=== PATIENT | male | born 1960 | race Hispanic/Latino ===

== ENCOUNTER 2017-05-19 17:05 | Emergency (ER) | payer MEDICAID ==
[2017-05-19 17:05] VITALS: BMI 41.3
[2017-05-19 17:58] LABS: BASO # 0.1 K/uL (0.0-0.2); BASO % 0.9 % (0.0-2.0); EOS # 0.2 K/uL (0.0-0.7); EOS % 1.9 % (0.0-4.0); HEMATOCRIT 44.3 % (35.0-51.0); LYMPH # 2.7 K/uL (1.0-4.3); LYMPH % 20.2 % (20.0-40.0); MEAN CELL VOLUME 82.8 fL (80.0-94.0); MEAN CORPUSCULAR HEMOGLOBIN 27.3 pg (27.0-31.0); MEAN PLATELET VOLUME 7.7 fL (7.2-11.7); MONO # 0.8 K/uL (0.0-0.8); MONO % 5.9 % (0.0-10.0); RED CELL DISTRIBUTION WIDTH 15.3 % (11.5-14.5); WHITE BLOOD COUNT 13.2 K/uL (4.8-10.8)
[2017-05-19] MEDS: Albuterol-Ipratrop 3 mg / 0.5 (3 ml) UD IH SCH ×3 (18:00→18:26)
[2017-05-19 18:08] LABS: CHLORIDE 104 mmol/L (98-107); SODIUM 142 mmol/L (132-148)
[2017-05-19 18:09] LABS: POTASSIUM 3.8 mmol/L (3.6-5.2)
--- NOTE | 2017-05-19 18:09 | RAD ---
HISTORY: SOB COMPARISON: Chest x-ray performed 01/05/16 TECHNIQUE: Chest, one view. FINDINGS: Examination limited by habitus. LUNGS: Mild bibasilar atelectasis. Please note that chest x-ray has limited sensitivity for the detection of pulmonary masses. PLEURA: No significant pleural effusion identified. No definite pneumothorax . CARDIOVASCULAR: Heart size appears within normal limits. Atherosclerotic calcifications of the aorta. OSSEOUS STRUCTURES: Right shoulder calcific tendinitis. Degenerative changes of the spine. VISUALIZED UPPER ABDOMEN: Mild elevation of the right hemidiaphragm. OTHER FINDINGS: None. IMPRESSION: Mild bibasilar atelectasis.
[2017-05-19 18:10] LABS: GFR AFRICAN-AMERICAN > 60
[2017-05-19 18:11] LABS: ALB/GLOB RATIO 1.2 (1.0-2.1); ALKALINE PHOSPHATASE 81 U/L (38-126); ALT/SGPT 47 U/L (21-72); AST/SGOT 23 U/L (17-59); BILIRUBIN,TOTAL 0.6 mg/dL (0.2-1.3); BLOOD UREA NITROGEN 11 mg/dL (9-20); CALCIUM 8.7 mg/dl (8.6-10.4); CARBON DIOXIDE 22 mmol/L (22-30); GLUCOSE,RANDOM 96 mg/dL (75-110); TOTAL PROTEIN 7.1 g/dL (6.3-8.3)
[2017-05-19 18:12] LABS: MAGNESIUM 1.9 mg/dL (1.6-2.3)
[2017-05-19] MEDS ORDERED: Albuterol-Ipratrop 3 mg / 0.5 (3 ml) UD ONE (18:18)
[2017-05-19] MEDS ORDERED: Magnesium Sulfate 1 gm in D5W 1 GM/100 ML BAG IVPB ONE ×2 (19:35→19:57)
--- NOTE | 2017-05-19 20:21 | C.PDOC ---
Time Seen by Provider: 05/19/17 17:32 Chief Complaint (Nursing): Respiratory Distress History Per: Patient Onset/Duration Of Symptoms: Hrs Current Symptoms Are (Timing): Still Present Current Respiratory Medications: See Home Med List Severity: Severe Associated Symptoms: Productive Cough Reports Recently: Hospitalized Additional History Per: Prior Records Past Medical History Reviewed: Historical Data, Nursing Documentation, Vital Signs Vital Signs: Last Vital Signs Temp 98.6 F 05/19/17 17:18 Pulse 110 H 05/19/17 18:58 Resp 25 H 05/19/17 18:58 BP 157/87 H 05/19/17 18:58 Pulse Ox 95 05/19/17 18:58 - Medical History PMH: Anxiety, Asthma, Bipolar Disorder, CHF, COPD, Depression, Diabetes, Emphysema, HTN, Hypercholesterolemia, Personality Disorder, Schizophrenia, Sleep Apnea - [facility] Procedures ALCOHOL DETOXIFICATION (06/28/14) ASSISTANCE WITH RESPIRATORY VENTILATION, 24-96 HRS, CPAP (04/30/17) DETOXIFICATION SERVICES FOR SUBSTANCE ABUSE TREATMENT (03/14/16) EXERCISE TREATMENT OF MUSCULOSK WHOLE USING ASSIST EQUIPMENT (05/04/17) GROUP PSYCHOTHERAPY (06/18/16) HOME MANAGEMENT TREATMENT USING ASSIST EQUIPMENT (05/04/17) INDIVID PSYCHOTHERAP NEC (07/03/15) INDIVIDUAL PSYCHOTHERAPY, BEHAVIORAL (12/24/15) INDIVIDUAL PSYCHOTHERAPY, SUPPORTIVE (06/18/16) INTRODUCE OF OTH THERAP SUBST INTO RESP TRACT, VIA OPENING (05/04/17) MEDICATION MANAGEMENT (03/14/16) NEBULIZER THERAPY (11/09/14) OTHER GROUP THERAPY (07/03/15) PSYCHIAT DRUG THERAP NEC (01/02/15) Family History: States: Unknown Family Hx - Social History Hx Tobacco Use: Yes Hx Alcohol Use: Yes Hx Substance Use: No - Immunization History Hx Tetanus Toxoid Vaccination: Yes Hx Influenza Vaccination: Yes Hx Pneumococcal Vaccination: No Review Of Systems Except As Marked, All Systems Reviewed And Found Negative. Constitutional: Negative for: Weakness Cardiovascular: Negative for: Chest Pain Respiratory: Positive for: Shortness of Breath, Wheezing. Negative for: Hemoptysis Gastrointestinal: Negative for: Vomiting, Abdominal Pain Musculoskeletal: Negative for: Neck Pain Neurological: Negative for: Weakness, Numbness, Seizures, Altered Mental Status Physical Exam - Physical Exam Appears: In Acute Distress Skin: Normal Color, Warm, Dry Head: Atraumatic, Normacephalic Eye(s): bilateral: PERRL, EOMI Neck: Normal ROM, Supple Cardiovascular: Rhythm Regular Respiratory: No Accessory Muscle Use, Wheezing Gastrointestinal/Abdominal: Soft, No Tenderness Back: No CVA Tenderness Extremity: Normal ROM, No Calf Tenderness Neurological/Psych: Oriented x3, Normal Motor, Normal Sensation ED Course And Treatment - Laboratory Results Result Diagrams: 05/19/17 17:52 05/19/17 17:52 Lab Interpretation: No Acute Changes ECG: Interpreted By Me, Viewed By Me ECG Rhythm: Sinus Tachycardia, Nonspecific Changes Rate From EC O2 Sat by Pulse Oximetry: 95 Pulse Ox Interpretation: Normal - Radiology CXR: Viewed By Me, Read By Radiologist CXR Interpretation: Yes: No Acute Disease Progress Note: Pt improved, but still wheezing. I wanted to admit pt to the hospital or at least observe him further, but he is not willing to stay any longer. Reassessment Condition: Improved Against Medical Advice - AMA Patient Left Against Medical Advice: The patient declines admission to the hospital and wishes to leave the Emergency Department. This action is against my medical advice. This decision was made with informed refusal. The patient was told that admission to the hospital is necessary. Explanation of the reasons why were discussed. The risks of leaving were explained to the patient and include, but are not limited to, worsening of known or currently unknown conditions, permanent disability and from undiagnosed or untreated conditions. The patient has the capacity to make this informed decision and understands my explanation of the current medical problem and risks of leaving. The patient voluntarily accepts these risks and signed an AMA form documenting our conversation. The patient was given the opportunity to ask questions and reconsider. The patient was encouraged to return to the Emergency Department at any time for further care. Progress - Interventions Interventions:: Observation, Oxygen - Medications Administered Inhaled nebulized: Anticholinergic, Beta-2 agonist Intravenous: Corticosteroid - Data Reviewed Data Reviewed: Lab, Diagnostic imaging, EKG, Old records - Patient Status Patient status: Mostly improved - Critical Care Citical Care: Excluding Proc Time Critical Care Time: 45 minutes - Continuity of Care Discussed patient case with:: Patient, ED Nurse Disposition Counseled Patient/Family Regarding: Studies Performed, Diagnosis, Need For Followup, Rx Given, Smoking Cessation - Disposition Referrals: Tamiko Arora [Outside] Disposition: AGAINST MEDICAL ADVICE Disposition Time: 20:22 Condition: GUARDED Additional Instructions: Follow up with your doctor as soon as possible. Return to the ER if you change your mind or if you develop worsening of symptoms or have any other concerns. Prescriptions: Montelukast Sodium [Singulair] 10 mg PO DAILY #30 tablet predniSONE [predniSONE Tab] 2 tab PO DAILY #10 tab Instructions: COPD (Chronic Obstructive Pulmonary Disease) (ED), Against Medical Advice (ED) Forms: [employer] (Danish) - Clinical Impression Clinical Impression: COPD exacerbation, Left against medical advice
[2017-05-19 20:24] VITALS: BP 130/82; PULSE 117; RESP 20; TEMP 99.2
[2017-05-19 20:25] VITALS: O2SAT 95
--- NOTE | 2017-05-21 07:54 | CARD ---
APPROVED REPORT EKG Measurement Heart [id number] <Conclusion> Sinus tachycardia Otherwise normal ECG
== END 2017-05-19 20:32 | disposition left against medical advice (07) ==
LOC: C.ER 17:05
DX: J44.1 Chronic obstructive pulmonary disease with (acute) exacerbation (principal); Z72.0 Tobacco use
CPT/HCPCS: 71010; 80053; 83735; 83880; 84484; 85025; 94150; 94640; 96374; 99285; J2930

== ENCOUNTER 2018-01-05 09:07 | Inpatient (IN) | payer MEDICAID ==
[2018-01-05 09:12] VITALS: BMI 42.0
[2018-01-05] MEDS ORDERED: Sodium Chloride 0.9% 1,000 ML IV ONE (09:27)
[2018-01-05] MEDS: Albuterol-Ipratrop 3 mg / 0.5 (3 ml) UD IH SCH ×3 (09:40→10:10)
[2018-01-05] MEDS ORDERED: Albuterol-Ipratrop 3 mg / 0.5 (3 ml) UD ONE (09:40)
[2018-01-05] MEDS ORDERED: Sodium Chloride 0.9% 1,000 ML ONE (09:41)
--- NOTE | 2018-01-05 09:41 | C.PDOC ---
History Of Present Illness 57 y/o male with PMHx of COPD and Asthma presents to ED with complaints of left sided intermittent chest pain worsening for 2 days with associated coughing and wheezing. Patient states he has a scheduled stress test tomorrow with Dr. Amanda but pain has worsened which prompted visit to ED today. Patient reports using inhaler once today with minimal improvement and denies sob, nausea , vomiting, fever, chills or any other complaints at this time. PMD: Dr. Zurita Time Seen by Provider: 01/05/18 09:15 Chief Complaint (Nursing): Chest Pain History Per: Patient History/Exam Limitations: no limitations Onset/Duration Of Symptoms: Days Current Symptoms Are (Timing): Still Present Quality: "Pain" Past Medical History Reviewed: Historical Data, Nursing Documentation, Vital Signs Vital Signs: Last Vital Signs Temp 98.1 F 01/05/18 13:14 Pulse 116 H 01/05/18 13:14 Resp 20 01/05/18 13:14 BP 117/78 01/05/18 13:14 Pulse Ox 97 01/05/18 14:40 - Medical History PMH: Anxiety, Asthma, Bipolar Disorder, CHF, COPD, Depression, Diabetes, Emphysema, HTN, Personality Disorder, Schizophrenia, Sleep Apnea Surgical History: No Surg Hx - [facility] Procedures ALCOHOL DETOXIFICATION (06/28/14) ASSISTANCE WITH RESPIRATORY VENTILATION, 24-96 HRS, CPAP (04/30/17) DETOXIFICATION SERVICES FOR SUBSTANCE ABUSE TREATMENT (03/14/16) EXERCISE TREATMENT OF MUSCULOSK WHOLE USING ASSIST EQUIPMENT (05/04/17) GROUP PSYCHOTHERAPY (09/30/17) HOME MANAGEMENT TREATMENT USING ASSIST EQUIPMENT (05/04/17) INDIV PSYCHOTHERAPY FOR SUBSTANCE ABUSE, COGNITIV BEHAVIORAL (09/30/17) INDIVID PSYCHOTHERAP NEC (07/03/15) INDIVIDUAL PSYCHOTHERAPY, BEHAVIORAL (12/24/15) INDIVIDUAL PSYCHOTHERAPY, COGNITIVE-BEHAVIORAL (09/30/17) INDIVIDUAL PSYCHOTHERAPY, SUPPORTIVE (06/18/16) INTRODUCE OF OTH THERAP SUBST INTO RESP TRACT, VIA OPENING (05/04/17) INTRODUCTION OF SERUM/TOX/VACCINE INTO MUSCLE, PERC APPROACH (09/28/17) MEDICATION MANAGEMENT (03/14/16) NEBULIZER THERAPY (11/09/14) OTHER GROUP THERAPY (07/03/15) PSYCHIAT DRUG THERAP NEC (01/02/15) Family History: States: No Known Family Hx - Social History Hx Tobacco Use: Yes Hx Alcohol Use: Yes Hx Substance Use: No - Immunization History Hx Tetanus Toxoid Vaccination: Yes Hx Influenza Vaccination: Yes Hx Pneumococcal Vaccination: No Review Of Systems Constitutional: Negative for: Fever, Chills Cardiovascular: Positive for: Chest Pain Respiratory: Positive for: Cough, Wheezing. Negative for: Shortness of Breath Gastrointestinal: Negative for: Nausea, Vomiting Skin: Negative for: Rash Physical Exam - Physical Exam Appears: Non-toxic, No Acute Distress, Other (obese) Skin: Warm, Dry, No Rash Head: Atraumatic, Normacephalic Oral Mucosa: Moist Neck: Normal ROM, Supple Chest: Symmetrical Cardiovascular: Rhythm Regular Respiratory: No Rales, No Rhonchi, Wheezing (Expiratory) Gastrointestinal/Abdominal: Soft, No Tenderness, No Guarding, No Rebound Extremity: No Pedal Edema, Capillary Refill (<2 seconds) Neurological/Psych: Oriented x3, Normal Speech ED Course And Treatment - Laboratory Results Result Diagrams: 01/05/18 09:46 01/05/18 09:46 Lab Interpretation: Normal ECG: Interpreted By Md ECG Rhythm: Sinus Tachycardia ECG Interpretation: No Acute Changes Rate From EC O2 Sat by Pulse Oximetry: 97 (RA) Pulse Ox Interpretation: Normal - Radiology CXR: Interpreted by Md CXR Interpretation: Yes: No Acute Disease - CT Scan/US No standard instances Other Rad Studies (CT/US): Read By Radiologist, Radiology Report Reviewed CT/US Interpretation: Findings: Visualized portions of the inferior thyroid gland: 8 mm left lower pole hypodense nodule. The mediastinal and hilar vascular structures appear within normal limits. The heart appears within normal limits of size. Prominent mediastinal adenopathy measuring up to 15 mm in short axis (subcarinal). There is suboptimal opacification of the pulmonary arteries as well as streak artifact which limits evaluation. No large central pulmonary embolus identified. Thin linear filling defect identified within a right upper lobe branch (series 2, image 102/coronal image 96) possibly resultant appearance from streak artifact rather than thrombus. No focal consolidation. No pleural effusion. No pneumothorax. No suspicious pulmonary nodules measuring greater than 5 mm. Limited visualized portions of the upper abdomen appear grossly unremarkable. No acute osseous abnormality is detected. Impression: There is suboptimal opacification of the pulmonary arteries as well as streak artifact which limits evaluation. No large central pulmonary embolus identified. Thin linear filling defect identified within a right upper lobe branch possibly resultant appearance from streak artifact rather than thrombus. Prominent mediastinal adenopathy measuring up to 15 mm in short axis (subcarinal). 8 mm left lower pole hypodense nodule. Outpatient thyroid ultrasound suggested for further evaluation if indicated. Progress Note: ECG, CXR, Dimer, blood work, UA ordered. Neb treatment, Prednisone Adiministered Reassessment Condition: Improved - Physician Consult Information Physician Contacted: Gnee Carpenter Outcome Of Conversation: admit Disposition Discussed With DrUsman: Gene Carpenter Doctor Will See Patient In The: Hospital - Disposition Disposition: HOSPITALIZED Disposition Time: 13:10 Condition: STABLE - POA Present On Arrival: None - Clinical Impression Clinical Impression: Chest pain, COPD exacerbation, COPD with exacerbation, COPD (chronic obstructive pulmonary disease) - PA / PSYCHOLOGY CLINICIAN / Resident Statement MD/DO has reviewed & agrees with the documentation as recorded. - Scribe Statement The provider has reviewed the documentation as recorded by the Juan Carlos Calix All medical record entries made by the Lichaibpal were at my direction and personally dictated by me. I have reviewed the chart and agree that the record accurately reflects my personal performance of the history, physical exam, medical decision making, and the department course for this patient. I have also personally directed, reviewed, and agree with the discharge instructions and disposition. Decision To Admit - Pt Status Changed To: Hospital Disposition Of: Inpatient - Admit Certification Admit to Inpatient:: After my assessment, the patient will require hospitalization for at least two midnights. This is because of the severity of symptoms shown, intensity of services needed, and/or the medical risk in this patient being treated as an outpatient. - InPatient: Physician Admission Certification: I certify that this patient requires 2 or more midnights of care for the following reason:: copd exacerbation - . Bed Request Type: Regular Admitting Physician: Gene Carpenter Patient Diagnosis: Chest pain, COPD exacerbation, COPD with exacerbation, COPD (chronic obstructive pulmonary disease)
[2018-01-05 09:52] LABS: BASO # 0.1 K/uL (0.0-0.2); EOS # 0.2 K/uL (0.0-0.7); EOS % 2.1 % (0.0-4.0); HEMOGLOBIN 15.4 g/dL (12.0-18.0); LYMPH # 1.4 K/uL (1.0-4.3); LYMPH % 14.3 % (20.0-40.0); MEAN CELL VOLUME 82.5 fL (80.0-94.0); MEAN CORPUSCULAR HEMOGLOBIN 27.7 pg (27.0-31.0); MEAN CORPUSCULAR HGB CONC 33.6 g/dL (33.0-37.0); MEAN PLATELET VOLUME 7.8 fL (7.2-11.7); MONO # 0.9 K/uL (0.0-0.8); MONO % 9.1 % (0.0-10.0); NEUT % 73.5 % (50.0-75.0); RBC 5.57 Mil/uL (4.40-5.90); WHITE BLOOD COUNT 9.6 K/uL (4.8-10.8)
[2018-01-05 10:05] LABS: ALB/GLOB RATIO 1.3 (1.0-2.1); ALBUMIN 4.5 g/dL (3.5-5.0); ALT/SGPT 34 U/L (21-72); AST/SGOT 31 U/L (17-59); BLOOD UREA NITROGEN 9 mg/dL (9-20); CALCIUM 9.2 mg/dl (8.6-10.4); GFR AFRICAN-AMERICAN > 60; GFR NON-AFRICAN AMERICAN > 60
[2018-01-05 10:15] LABS: CK-MB 2.77 ng/mL (0.0-3.38)
--- NOTE | 2018-01-05 10:38 | RAD ---
HISTORY: SOB COMPARISON: Chest radiograph dated 05/19/2017. TECHNIQUE: Chest PA and lateral FINDINGS: LUNGS: No active pulmonary disease. PLEURA: No significant pleural effusion identified. No pneumothorax apparent. CARDIOVASCULAR: Atherosclerotic aortic calcifications. Cardiomediastinal silhouette stably enlarged. OSSEOUS STRUCTURES: Unchanged. VISUALIZED UPPER ABDOMEN: Normal. OTHER FINDINGS: None. IMPRESSION: No active disease.
[2018-01-05 10:56] LABS: URINE BILIRUBIN NEGATIVE (NEGATIVE); URINE BLOOD NEGATIVE (NEGATIVE); URINE CLARITY Clear (Clear); URINE COLOR Straw (YELLOW); URINE GLUCOSE (UA) NORMAL (Normal); URINE LEUKOCYTE ESTERASE NEG Leu/uL (Negative); URINE PROTEIN NEGATIVE (NEGATIVE); URINE UROBILINOGEN NORMAL mg/dL (0.2-1.0)
[2018-01-05] MEDS ORDERED: Iodixanol 320 MG/ML 100 ML BOTTLE IV ONE (11:21)
--- NOTE | 2018-01-05 12:41 | CT ---
CTA chest PE protocol Indication: Dyspnea Technique: Contiguous axial images were obtained through the chest with intravenous contrast enhancement. Sagittal and coronal reconstructions were generated and reviewed. This CT exam was performed using 1 or more of the following dose reduction techniques: Automated exposure control, adjustment of the MAA and/or kV according to patient size, and/or use of iterative reconstruction technique. IV Contrast: 100 mL Visipaque 320 Radiation dose (DLP): 1234.81 MGy-cm. Comparison: Chest x-ray performed 01/05/18 Findings: Visualized portions of the inferior thyroid gland: 8 mm left lower pole hypodense nodule. The mediastinal and hilar vascular structures appear within normal limits. The heart appears within normal limits of size. Prominent mediastinal adenopathy measuring up to 15 mm in short axis (subcarinal). There is suboptimal opacification of the pulmonary arteries as well as streak artifact which limits evaluation. No large central pulmonary embolus identified. Thin linear filling defect identified within a right upper lobe branch (series 2, image 102/coronal image 96) possibly resultant appearance from streak artifact rather than thrombus. No focal consolidation. No pleural effusion. No pneumothorax. No suspicious pulmonary nodules measuring greater than 5 mm. Limited visualized portions of the upper abdomen appear grossly unremarkable. No acute osseous abnormality is detected. Impression: There is suboptimal opacification of the pulmonary arteries as well as streak artifact which limits evaluation. No large central pulmonary embolus identified. Thin linear filling defect identified within a right upper lobe branch possibly resultant appearance from streak artifact rather than thrombus. Prominent mediastinal adenopathy measuring up to 15 mm in short axis (subcarinal). 8 mm left lower pole hypodense nodule. Outpatient thyroid ultrasound suggested for further evaluation if indicated. Findings discussed with ASIA Butts on 01/05/18 at 12:37 p.m.
[2018-01-05] MEDS: Enoxaparin 40 mg Syringe SC SCH (17:24)
--- NOTE | 2018-01-05 17:53 | CP.PCM.HP ---
Past Patient History - Infectious Disease Hx of Infectious Diseases: None - Past Medical History & Family History Past Medical History?: Yes - Past Social History Smoking Status: Never Smoked - CARDIAC Hx Cardiac Disorders: Yes Hx Hypertension: Yes - PULMONARY Hx Asthma: Yes Hx Chronic Obstructive Pulmonary Disease (COPD): Yes Hx Emphysema: Yes Hx Sleep Apnea: Yes - NEUROLOGICAL Hx Neurological Disorder: No Hx Seizures: No - HEENT Hx HEENT Problems: No - RENAL Hx Chronic Kidney Disease: No - ENDOCRINE/METABOLIC Hx Endocrine Disorders: Yes Hx Diabetes Mellitus Type 1: No (PT DENIES) Hx Diabetes Mellitus Type 2: Yes Other/Comment: REPORTS "I'M BORDERLINE DIABETIC - HEMATOLOGICAL/ONCOLOGICAL Hx Blood Disorders: No Hx Human Immunodeficiency Virus (HIV): No - INTEGUMENTARY Hx Dermatological Problems: No - MUSCULOSKELETAL/RHEUMATOLOGICAL Hx Musculoskeletal Disorders: Yes Hx Falls: Yes - GASTROINTESTINAL Hx Gastrointestinal Disorders: No - GENITOURINARY/GYNECOLOGICAL Hx Genitourinary Disorders: No Hx Sexually Transmitted Disorders: No - PSYCHIATRIC Hx Psychophysiologic Disorder: Yes Hx Anxiety: Yes Hx Bipolar Disorder: Yes Hx Depression: Yes Hx Schizophrenia: Yes Hx Substance Use: No - SURGICAL HISTORY Hx Surgeries: No - ANESTHESIA Hx Anesthesia: No Hx Anesthesia Reactions: No Hx Malignant Hyperthermia: No Has any member of the family had a problem w/ anesthesia?: No Meds Allergies/Adverse Reactions: Allergies Allergy/AdvReac Type Severity Reaction Status Date / Time [place] And Derivatives Allergy ANGIOEDEMA Verified 01/05/18 09:11 Results - Vital Signs Recent Vital Signs: Last Vital Signs Temp 97.5 F L 01/05/18 16:27 Pulse 120 H 01/05/18 16:27 Resp 20 01/05/18 16:27 BP 147/86 01/05/18 16:27 Pulse Ox 96 01/05/18 16:27 - Labs Result Diagrams: 01/05/18 09:46 01/05/18 09:46 Labs: Laboratory Results - last 24 hr 01/05/18 01/05/18 01/05/18 09:46 09:46 09:46 WBC 9.6 RBC 5.57 Hgb 15.4 Hct 45.9 MCV 82.5 MCH 27.7 MCHC 33.6 RDW 16.0 H Plt Count 308 MPV 7.8 Neut % (Auto) 73.5 Lymph % (Auto) 14.3 L Bradley % (Auto) 9.1 Eos % (Auto) 2.1 Baso % (Auto) 1.0 Neut # (Auto) 7.0 Lymph # (Auto) 1.4 Bradley # (Auto) 0.9 H Eos # (Auto) 0.2 Baso # (Auto) 0.1 D-Dimer, Quantitative 328 H Sodium 139 Potassium 4.0 Chloride 99 Carbon Dioxide 25 Anion Gap 20 BUN 9 Creatinine 0.8 Est GFR ( Amer) > 60 Est GFR (Non-Af Amer) > 60 Random Glucose 95 Calcium 9.2 Total Bilirubin 0.5 AST 31 ALT 34 Alkaline Phosphatase 93 CK-MB (Mass) 2.77 Troponin I < 0.0120 Total Protein 8.0 Albumin 4.5 Globulin 3.5 Albumin/Globulin Ratio 1.3 Urine Color Urine Clarity Urine pH Ur Specific [place] Urine Protein Urine Glucose (UA) Urine Ketones Urine Blood Urine Nitrate Urine Bilirubin Urine Urobilinogen Ur Leukocyte Esterase Urine WBC (Auto) Urine RBC (Auto) Influenza Typ A,B (EIA) 01/05/18 01/05/18 10:40 12:59 WBC RBC Hgb Hct MCV MCH MCHC RDW Plt Count MPV Neut % (Auto) Lymph % (Auto) [place] % (Auto) Eos % (Auto) Baso % (Auto) Neut # (Auto) Lymph # (Auto) Bradley # (Auto) Eos # (Auto) Baso # (Auto) D-Dimer, Quantitative Sodium Potassium Chloride Carbon Dioxide Anion Gap BUN Creatinine Est GFR ( Amer) Est GFR (Non-Af Amer) Random Glucose Calcium Total Bilirubin AST ALT Alkaline Phosphatase CK-MB (Mass) Troponin I Total Protein Albumin Globulin Albumin/Globulin Ratio Urine Color Straw Urine Clarity Clear Urine pH 6.0 Ur Specific [place] 1.010 Urine Protein Negative Urine Glucose (UA) Normal Urine Ketones Negative Urine Blood Negative Urine Nitrate Negative Urine Bilirubin Negative Urine Urobilinogen Normal Ur Leukocyte Esterase Neg Urine WBC (Auto) < 1 Urine RBC (Auto) < 1 Influenza Typ A,B (EIA) Negative for flu a/b
[2018-01-05 20:23] LABS: CK-MB 3.28 ng/mL (0.0-3.38)
[2018-01-05] MEDS: Bacitracin Ointment 30 GM TUBE TOP PRN (21:08)
[2018-01-05] MEDS: (Novolog) Insulin Aspart, Recombinant 100 u/ml 10 ml vial SC SCH (23:14)
[2018-01-05] MEDS: Albuterol-Ipratrop 3 mg / 0.5 (3 ml) UD INH PRN (23:59)
[2018-01-06] MEDS: (Novolog) Insulin Aspart, Recombinant 100 u/ml 10 ml vial SC SCH ×4 (07:53→21:15)
[2018-01-06 08:12] LABS: BASO % 0.3 % (0.0-2.0); HEMOGLOBIN 14.7 g/dL (12.0-18.0); LYMPH # 0.8 K/uL (1.0-4.3); MEAN CELL VOLUME 82.3 fL (80.0-94.0); MEAN CORPUSCULAR HEMOGLOBIN 27.4 pg (27.0-31.0); MEAN CORPUSCULAR HGB CONC 33.3 g/dL (33.0-37.0); MEAN PLATELET VOLUME 8.1 fL (7.2-11.7); MONO # 0.9 K/uL (0.0-0.8); MONO % 5.2 % (0.0-10.0); NEUT # 14.8 K/uL (1.8-7.0); NEUT % 89.5 % (50.0-75.0); NRBC % 0.1 % (0.0-2.0); PLATELET COUNT 340 K/uL (130-400); RBC 5.37 Mil/uL (4.40-5.90)
[2018-01-06] MEDS ORDERED: Aminophylline 25 mg/ml Inj ONE (08:14)
[2018-01-06 08:15] LABS: WHITE BLOOD COUNT 16.5 K/uL (4.8-10.8)
[2018-01-06 08:41] LABS: ALB/GLOB RATIO 1.2 (1.0-2.1); ALBUMIN 4.2 g/dL (3.5-5.0); ALT/SGPT 28 U/L (21-72); AST/SGOT 32 U/L (17-59); BLOOD UREA NITROGEN 13 mg/dL (9-20); CALCIUM 9.2 mg/dl (8.6-10.4); GFR AFRICAN-AMERICAN > 60; GFR NON-AFRICAN AMERICAN > 60
[2018-01-06 08:52] LABS: CK-MB 2.67 ng/mL (0.0-3.38)
[2018-01-06 10:48] LABS: ANISOCYTOSIS SLIGHT; BANDS 3 % (0-2); LYMPHOCYTE 7 % (20-40); MONOCYTE 4 % (0-10); NEUTROPHIL 86 % (50-75); PLATELET ESTIMATE NORMAL (NORMAL); TOTAL CELLS COUNTED 100
[2018-01-06] MEDS: Enoxaparin 40 mg Syringe SC SCH (10:56)
--- NOTE | 2018-01-06 11:28 | CP.PCM.CON ---
History of Present Illness - History of Present Illness History of Present Illness: I was asked to evaluate patient by Dr Carpenter. Patient is a 57 year old male with PMH HTN, hypercholesterolemia COPD who presents with chest pain. He describes a central chest pressure with associated dyspnea. Symptoms were apparent with walking one block. The patient had progressive dsypnea and presented to [facility]. he states he has intemittent chest heaviness. Review of Systems - Constitutional Constitutional: absent: As Per HPI, Anorexia, Chills, Daytime Sleepiness, Excessive Sweating, Fatigue, Fever, Frequent Falls, Headache, Increased Appetite , Lethargy, Malaise, Night Sweats, Snoring, Sleep Apnea, Weight Gain, Weight Loss, Weakness, Other - EENT Eyes: absent: As Per HPI, Blind Spots, Blurred Vision, Change in Vision, Decreased Night Vision, Diplopia, Discharge, Dry Eye, Exophthalmos, Floaters, Irritation, Itchy Eyes, Loss of Peripheral Vision, Pain, Photophobia, Requires Corrective Lenses, Sees Flashes, Spots in Vision, Tunnel Vision, Other Visual Disturbances, Loss of Vision, Other Ears: absent: As Per HPI, Decreased Hearing, Ear Discharge, Ear Pain, Tinnitus, Abnormal Hearing, Disequilibrium, Dizziness, Other Nose/Mouth/Throat: absent: As Per HPI, Epistaxis, Nasal Congestion, Nasal Discharge, Nasal Obstruction, Nasal Trauma, Nose Pain, Post Nasal Drip, Sinus Pain, Sinus Pressure, Bleeding Gums, Change in Voice, Dental Pain, Dry Mouth, Dysphagia, Halitosis, Hoarsness, Lip Swelling, Mouth Lesions, Mouth Pain, Odynophagia, Sore Throat, Throat Swelling, Tongue Swelling, Facial Pain, Neck Pain, Neck Mass, Other - Cardiovascular Cardiovascular: Chest Pain at Rest, Chest Pain with Activity - Respiratory Respiratory: Dyspnea - Gastrointestinal Gastrointestinal: absent: As Per HPI, Abdominal Pain, Belching, Bloating, Change in Bowel Habits, Change in Stool Character, Coffee Ground Emesis, Constipation, Cramping, Diarrhea, Dyspepsia, Dysphagia, Early Satiety, Excessive Flatus, Fecal Incontinence, Heartburn, Hematemesis, Hematochezia, Loose Stools, Melena, Nausea, Odynophagia, Temesmus, Vomiting, Other - Genitourinary Genitourinary: absent: As Per HPI, Change in Urinary Stream, Difficulty Urinating, Dysuria, Flank Pain, Hematuria, Pyuria, Nocturia, Urinary Incontinence, Urinary Frequency, Urinary Hesitance, Urinary Urgency, Voiding Freq/Small Amts, Freq UTI, Hx Renal/Bladder Calculi, Hx /Renal Surgery, Bladder Distension, Other - Musculoskeletal Musculoskeletal: absent: As Per HPI, Abnormal Gait, Arthralgias, Atrophy, Back Pain, Deformity, Joint Swelling, Limited Range of Motion, Loss of Height, Muscle Cramps, Muscle Weakness, Myalgias, Neck Pain, Numbness, Radiating Pain into Limb, Stiffness, Tingling, Other - Integumentary Integumentary: absent: As Per HPI, Acne, Alopecia, Bleeding Lesions, Change in Hair, Change in Nails, Change in Pigmentation, Changing Lesions, Dry Skin, Erythema, Furuncle, Hirsutism, Lesions, New Lesions, Non-Healing Lesions, Photosensitivity, Pruritus, Rash, Skin Pain, Skin Ulcer, Sores, Striae, Swelling , Unusual Bruising, Wounds, Jaundice, Other - Neurological Neurological: absent: As Per HPI, Abnormal Gait, Abnormal Hearing, Abnormal Movements, Abnormal Speech, Behavioral Changes, Burning Sensations, Confusion, Convulsions, Disequilibrium, Dizziness, Numbness, Focal Weakness, Frequent Falls , Headaches, Lack of Coordination, Loss of Vision, Memory Loss, Paresthesias, Radicular Pain, Restless Legs, Sensory Deficit, Syncope, Tingling, Tremor, Vertigo, Weakness, Other Visual Disturbances, Other - Psychiatric Psychiatric: absent: As Per HPI, Abnormal Sleep Pattern, Anhedonia, Anxiety, Auditory Hallucinations, Behavioral Changes, Change in Appetite, Change in Libido, Confusion, Depression, Difficulty Concentrating, Hallucinations, Homicidal Ideation, Hopelessness, Irritability, Memory Loss, Mood Swings, Panic Attacks, Paranoia, Suicidal Ideation, Visual Hallucinations, Tactile Hallucinations, Other - Endocrine Endocrine: absent: As Per HPI, Change in Body Appearance, Change in Libido, Cold Intolorance, Deepening of Voice, Excessive Sweating, Fatigue, Flushing, Heat Intolorance, Increase in Ring/Shoe/Hat Size, Palpitations, Polydipsia, Polyphagia, Polyuria, Other - Hematologic/Lymphatic Hematologic: absent: As Per HPI, Easy Bleeding, Easy Bruising, Lymphadenopathy, Other Past Patient History - Infectious Disease Hx of Infectious Diseases: None - Past Medical History & Family History Past Medical History?: Yes - Past Social History Smoking Status: Never Smoked - CARDIAC Hx Cardiac Disorders: Yes Hx Hypertension: Yes - PULMONARY Hx Asthma: Yes Hx Chronic Obstructive Pulmonary Disease (COPD): Yes Hx Emphysema: Yes Hx Sleep Apnea: Yes - NEUROLOGICAL Hx Neurological Disorder: No Hx Seizures: No - HEENT Hx HEENT Problems: No - RENAL Hx Chronic Kidney Disease: No - ENDOCRINE/METABOLIC Hx Endocrine Disorders: Yes Hx Diabetes Mellitus Type 1: No (PT DENIES) Hx Diabetes Mellitus Type 2: Yes Other/Comment: REPORTS "I'M BORDERLINE DIABETIC - HEMATOLOGICAL/ONCOLOGICAL Hx Blood Disorders: No Hx Human Immunodeficiency Virus (HIV): No - INTEGUMENTARY Hx Dermatological Problems: No - MUSCULOSKELETAL/RHEUMATOLOGICAL Hx Musculoskeletal Disorders: Yes Hx Falls: Yes - GASTROINTESTINAL Hx Gastrointestinal Disorders: No - GENITOURINARY/GYNECOLOGICAL Hx Genitourinary Disorders: No Hx Sexually Transmitted Disorders: No - PSYCHIATRIC Hx Psychophysiologic Disorder: Yes Hx Anxiety: Yes Hx Bipolar Disorder: Yes Hx Depression: Yes Hx Schizophrenia: Yes Hx Substance Use: No - SURGICAL HISTORY Hx Surgeries: No - ANESTHESIA Hx Anesthesia: No Hx Anesthesia Reactions: No Hx Malignant Hyperthermia: No Has any member of the family had a problem w/ anesthesia?: No Meds Allergies/Adverse Reactions: Allergies Allergy/AdvReac Type Severity Reaction Status Date / Time Bettles And Derivatives Allergy ANGIOEDEMA Verified 01/05/18 09:11 - Medications Medications: Current Medications Albuterol/Ipratropium (Duoneb 3 Mg/0.5 Mg (3 Ml) Ud) 3 ml INH RQ6 PRN PRN Reason: Shortness of Breath Last Admin: 01/05/18 23:59 Dose: 3 ml Amlodipine Besylate (Norvasc) 10 mg PO DAILY [facility] Last Admin: 01/06/18 10:56 Dose: Not Given Aspirin (Aspirin Chewable) 81 mg PO DAILY [facility] Last Admin: 01/06/18 10:56 Dose: Not Given Bacitracin (Bacitracin) 1 gm TOP Q6H PRN PRN Reason: wound on right forearm Last Admin: 01/05/18 21:08 Dose: 1 applic Enoxaparin Sodium (Lovenox) 40 mg SC DAILY [facility] Last Admin: 01/06/18 10:56 Dose: Not Given Gabapentin (Neurontin) 100 mg PO TID PRN PRN Reason: Anxiety Last Admin: 03/14/18 21:07 Dose: 100 mg Insulin Aspart (Novolog) 0 unit SC ACHS [facility] PRN Reason: Protocol Last Admin: 01/06/18 07:53 Dose: Not Given Methylprednisolone (Solu-Medrol) 60 mg IV Q8 [facility] Last Admin: 01/06/18 07:41 Dose: Not Given Pramipexole Dihydrochloride (Mirapex) 1.5 mg PO Q12H [facility] Last Admin: 01/06/18 10:56 Dose: Not Given Physical Exam - Constitutional Appears: Non-toxic - Head Exam Head Exam: NORMAL INSPECTION - Eye Exam Eye Exam: Normal appearance - ENT Exam ENT Exam: Mucous Membranes Moist - Neck Exam Neck exam: Positive for: Full Rom - Respiratory Exam Respiratory Exam: NORMAL BREATHING PATTERN - Cardiovascular Exam Cardiovascular Exam: REGULAR RHYTHM - GI/Abdominal Exam GI & Abdominal Exam: Normal Bowel Sounds - Rectal Exam Rectal Exam: Deferred - Extremities Exam Extremities exam: Positive for: tenderness - Back Exam Back exam: NORMAL INSPECTION - Neurological Exam Neurological exam: Alert, Oriented x3 - Psychiatric Exam Psychiatric exam: Normal Affect - Skin Skin Exam: Normal Color Results - Vital Signs Recent Vital Signs: Last Vital Signs Temp 97.5 F L 01/06/18 07:00 Pulse 109 H 01/06/18 07:00 Resp 21 01/06/18 07:00 BP 156/103 H 01/06/18 07:00 Pulse Ox 93 L 01/06/18 07:00 - Labs Result Diagrams: 01/06/18 07:56 01/06/18 07:21 Labs: Laboratory Results - last 24 hr 01/05/18 01/05/18 01/05/18 10:40 12:59 17:54 WBC RBC Hgb Hct MCV MCH MCHC RDW Plt Count MPV Neut % (Auto) Lymph % (Auto) [place] % (Auto) Eos % (Auto) Baso % (Auto) Neut # (Auto) Lymph # (Auto) [place] # (Auto) Eos # (Auto) Baso # (Auto) Neutrophils % (Manual) Band Neutrophils % Lymphocytes % (Manual) Monocytes % (Manual) Platelet Estimate Anisocytosis (manual) Sodium Potassium Chloride Carbon Dioxide Anion Gap BUN Creatinine Est GFR ( Amer) Est GFR (Non-Af Amer) POC Glucose (mg/dL) 216 H Random Glucose Calcium Total Bilirubin AST ALT Alkaline Phosphatase Total Creatine Kinase CK-MB (Mass) Troponin I Total Protein Albumin Globulin Albumin/Globulin Ratio Urine Color Straw Urine Clarity Clear Urine pH 6.0 Ur Specific [place] 1.010 Urine Protein Negative Urine Glucose (UA) Normal Urine Ketones Negative Urine Blood Negative Urine Nitrate Negative Urine Bilirubin Negative Urine Urobilinogen Normal Ur Leukocyte Esterase Neg Urine WBC (Auto) < 1 Urine RBC (Auto) < 1 Influenza Typ A,B (EIA) Negative for flu a/b 01/05/18 01/05/18 01/06/18 19:41 21:24 06:22 WBC RBC Hgb Hct MCV MCH MCHC RDW Plt Count MPV Neut % (Auto) Lymph % (Auto) [place] % (Auto) Eos % (Auto) Baso % (Auto) Neut # (Auto) Lymph # (Auto) [place] # (Auto) Eos # (Auto) Baso # (Auto) Neutrophils % (Manual) Band Neutrophils % Lymphocytes % (Manual) Monocytes % (Manual) Platelet Estimate Anisocytosis (manual) Sodium Potassium Chloride Carbon Dioxide Anion Gap BUN Creatinine Est GFR ( Amer) Est GFR (Non-Af Amer) POC Glucose (mg/dL) 222 H 150 H Random Glucose Calcium Total Bilirubin AST ALT Alkaline Phosphatase Total Creatine Kinase 107 CK-MB (Mass) 3.28 Troponin I < 0.0120 Total Protein Albumin Globulin Albumin/Globulin Ratio Urine Color Urine Clarity Urine pH Ur Specific [place] Urine Protein Urine Glucose (UA) Urine Ketones Urine Blood Urine Nitrate Urine Bilirubin Urine Urobilinogen Ur Leukocyte Esterase Urine WBC (Auto) Urine RBC (Auto) Influenza Typ A,B (EIA) 01/06/18 01/06/18 07:21 07:56 WBC 16.5 H D RBC 5.37 Hgb 14.7 Hct 44.2 MCV 82.3 MCH 27.4 MCHC 33.3 RDW 16.0 H Plt Count 340 MPV 8.1 Neut % (Auto) 89.5 H Lymph % (Auto) 5.0 L [place] % (Auto) 5.2 Eos % (Auto) 0.0 Baso % (Auto) 0.3 Neut # (Auto) 14.8 H Lymph # (Auto) 0.8 L [place] # (Auto) 0.9 H Eos # (Auto) 0.0 Baso # (Auto) 0.0 Neutrophils % (Manual) 86 H Band Neutrophils % 3 H Lymphocytes % (Manual) 7 L Monocytes % (Manual) 4 Platelet Estimate Normal Anisocytosis (manual) Slight Sodium 136 Potassium 4.8 Chloride 101 Carbon Dioxide 23 Anion Gap 17 BUN 13 Creatinine 0.7 L Est GFR ( Amer) > 60 Est GFR (Non-Af Amer) > 60 POC Glucose (mg/dL) Random Glucose 167 H Calcium 9.2 Total Bilirubin 0.4 AST 32 ALT 28 Alkaline Phosphatase 78 Total Creatine Kinase 103 CK-MB (Mass) 2.67 Troponin I < 0.0120 Total Protein 7.9 Albumin 4.2 Globulin 3.6 Albumin/Globulin Ratio 1.2 Urine Color Urine Clarity Urine pH Ur Specific [place] Urine Protein Urine Glucose (UA) Urine Ketones Urine Blood Urine Nitrate Urine Bilirubin Urine Urobilinogen Ur Leukocyte Esterase Urine WBC (Auto) Urine RBC (Auto) Influenza Typ A,B (EIA) - EKG Data EKG Interpreted by: Myself EKG shows normal: Sinus rhythm Assessment & Plan (1) Chest pain Assessment and Plan: patient has signficant cardiovascular risk factors. will schedule for stress test today. Status: Acute (2) Hypertension Assessment and Plan: blood pressure control Status: Acute
--- NOTE | 2018-01-06 11:53 | CP.PCM.PN ---
Subjective - Date & Time of Evaluation Date of Evaluation: 01/06/18 Time of Evaluation: 10:00 - Subjective Subjective: stress test performed. await nuclear images Objective - Vital Signs/Intake and Output Vital Signs (last 24 hours): Temp Pulse Resp BP Pulse Ox 97.5 F L 109 H 21 156/103 H 93 L 01/06/18 07:00 01/06/18 07:00 01/06/18 07:00 01/06/18 07:00 01/06/18 07:00 - Medications Medications: Current Medications Albuterol/Ipratropium (Duoneb 3 Mg/0.5 Mg (3 Ml) Ud) 3 ml INH RQ6 PRN PRN Reason: Shortness of Breath Last Admin: 01/05/18 23:59 Dose: 3 ml Amlodipine Besylate (Norvasc) 10 mg PO DAILY [facility] Last Admin: 01/06/18 10:56 Dose: Not Given Aspirin (Aspirin Chewable) 81 mg PO DAILY [facility] Last Admin: 01/06/18 10:56 Dose: Not Given Bacitracin (Bacitracin) 1 gm TOP Q6H PRN PRN Reason: wound on right forearm Last Admin: 01/05/18 21:08 Dose: 1 applic Enoxaparin Sodium (Lovenox) 40 mg SC DAILY [facility] Last Admin: 01/06/18 10:56 Dose: Not Given Gabapentin (Neurontin) 100 mg PO TID PRN PRN Reason: Anxiety Last Admin: 01/05/18 21:07 Dose: 100 mg Insulin Aspart (Novolog) 0 unit SC ACHS [facility] PRN Reason: Protocol Last Admin: 01/06/18 07:53 Dose: Not Given Methylprednisolone (Solu-Medrol) 60 mg IV Q8 [facility] Last Admin: 01/06/18 07:41 Dose: Not Given Pramipexole Dihydrochloride (Mirapex) 1.5 mg PO Q12H [facility] Last Admin: 01/06/18 10:56 Dose: Not Given - Labs Labs: 01/06/18 07:56 01/06/18 07:21 Assessment and Plan (1) Chest pain Status: Acute (2) Hypertension Status: Acute
[2018-01-06] MEDS: Albuterol-Ipratrop 3 mg / 0.5 (3 ml) UD INH PRN ×2 (14:11→21:38)
--- NOTE | 2018-01-06 15:25 | CP.PCM.PN ---
Subjective - Date & Time of Evaluation Date of Evaluation: 01/06/18 Time of Evaluation: 15:25 Objective - Vital Signs/Intake and Output Vital Signs (last 24 hours): Temp Pulse Resp BP Pulse Ox 97.5 F L 109 H 21 156/103 H 93 L 01/06/18 07:00 01/06/18 07:00 01/06/18 07:00 01/06/18 07:00 01/06/18 07:00 Intake and Output: 01/06/18 01/06/18 06:59 18:59 Intake Total 300 Balance 300 - Medications Medications: Current Medications Albuterol/Ipratropium (Duoneb 3 Mg/0.5 Mg (3 Ml) Ud) 3 ml INH RQ6 PRN PRN Reason: Shortness of Breath Last Admin: 01/06/18 14:11 Dose: 3 ml Amlodipine Besylate (Norvasc) 10 mg PO DAILY [facility] Last Admin: 01/06/18 12:16 Dose: 10 mg Aspirin (Aspirin Chewable) 81 mg PO DAILY [facility] Last Admin: 01/06/18 10:56 Dose: Not Given Bacitracin (Bacitracin) 1 gm TOP Q6H PRN PRN Reason: wound on right forearm Last Admin: 01/05/18 21:08 Dose: 1 applic Enoxaparin Sodium (Lovenox) 40 mg SC DAILY [facility] Last Admin: 01/06/18 10:56 Dose: Not Given Gabapentin (Neurontin) 100 mg PO TID PRN PRN Reason: Anxiety Last Admin: 01/05/18 21:07 Dose: 100 mg Insulin Aspart (Novolog) 0 unit SC ACHS [facility] PRN Reason: Protocol Last Admin: 01/06/18 12:06 Dose: Not Given Methylprednisolone (Solu-Medrol) 60 mg IV Q8 [facility] Last Admin: 01/06/18 13:50 Dose: 60 mg Pramipexole Dihydrochloride (Mirapex) 1.5 mg PO Q12H [facility] Last Admin: 01/06/18 10:56 Dose: Not Given - Labs Labs: 01/06/18 07:56 01/06/18 07:21
--- NOTE | 2018-01-06 16:36 | CARD ---
APPROVED REPORT EKG Measurement Heart [id number] AL [id number] <Conclusion> Sinus tachycardia Otherwise normal ECG
[2018-01-07 07:46] LABS: BASO % 0.1 % (0.0-2.0); HEMOGLOBIN 14.6 g/dL (12.0-18.0); LYMPH # 0.8 K/uL (1.0-4.3); MEAN CELL VOLUME 83.9 fL (80.0-94.0); MEAN CORPUSCULAR HEMOGLOBIN 27.8 pg (27.0-31.0); MEAN CORPUSCULAR HGB CONC 33.2 g/dL (33.0-37.0); MEAN PLATELET VOLUME 8.1 fL (7.2-11.7); MONO # 0.9 K/uL (0.0-0.8); MONO % 5.4 % (0.0-10.0); NEUT # 14.5 K/uL (1.8-7.0); NEUT % 89.5 % (50.0-75.0); PLATELET COUNT 349 K/uL (130-400); RBC 5.26 Mil/uL (4.40-5.90); RED CELL DISTRIBUTION WIDTH 16.1 % (11.5-14.5); WHITE BLOOD COUNT 16.2 K/uL (4.8-10.8)
--- NOTE | 2018-01-07 07:49 | CARD ---
APPROVED REPORT Protocol: PHARMACOLOGICAL STRESS Test Type: LEXISCAN Test Indications: COPD Medications: LIST SCAN Medical History: COPD EXCERBATION Target HR: 163 bpm Resting ECG: normal Resting Heart Rate: 95 bpm Resting Blood Pressure: 144/90mmHg submaximum (85%): 139 bpm TEST SUMMARY [id number]/90.0. INFUSIONDOSE 100:300.00.01.078/.0. [id number]/88.0. PROCEDURE Pharmacologic stress testing was performed using 0.4mg per 5ml of regadenoson given intravenously over 7-10 seconds. Reversal agent aminophyline 125 mg, given intravenously for Dyspnea. POST EXERCISE Reason for Termination: Protocol Completed Target HR: No Max HR: 78 bpm 68% of Maximum Predicted HR: 163 bpm Exercise duration: 00:30 min:sec, 0 Stage Exercise capacity: 1.0METs Max Blood Pressure: 170/90mmHg Blood Pressure response to exercise: normal resting BP - appropriate response Heart Rate response to exercise: appropriate Chest Pain: No, none Angina index: 0 Arrhythmia: No, none ST Change: No, none Deviation: 0 mm INTERPRETATION Stress EKG Conclusion: AWAIT NUCLEAR IMAGES EXAM: Myocardial Perfusion REST/STRESS Imaging Protocol The imaging protocol used to acquire images was Rest Tc-99m/stress Tc-99m 1 day Rest Spect myocardial perfusion imaging was performed in supine position 45 minutes following the injection of 13.1 mCi of Tc-99 Myoview. Gated Stress Spect was performed 45 minutes after intravenous 32.6 mCi Tc-99 Myoview injection. The images were gated to evaluate regional wall motion and calculate ventricular ejection fraction.Images were reconstructed using backfilter projection method in short horizontal and verticle long axis. Spect slices were generated. RESTING DATA JWO209.97lnXP0.90L/min1/3 Pk. Filling Rate0.92EDV/sec LV Time to Pk. Filling Jojd470.76msec ESV49.00mlMyocardial Bdkq221.00gLV Time to Pk. Ejection Zjrf771.20msec Pk. Fill Rate3.29EDV/secAv. Heart Rate85.00bpm EF66.00%Pk. Emptying Rate3.06ESV/sec STRESS DATA AOD841.77yvHS3.40L/min ESV45.00mlMyocardial Ulka077.00g Pk. Fill Rate4.55EDV/sec EF65.00%Pk. Emptying Rate5.10ESV/sec 1/3 Pk. Filling Rate1.35EDV/secRegional WT score at stress:0.00 LV Time to Pk. Filling Rate:146.42msecRegional WM score at stress:0.00 LV Time to Pk. Ejection Rate:122.63msecSummed WT score at stress:4.00 Av. Heart Xblu487.00bpmSummed WM score at stress:3.00 LV Perf. Quant 17 Seg. SSS2.00 17 Seg. SRS3.00 17 Seg. SDS0.00 Stress Defect Extent (% LAD)0.00Rest Defect Extent (% LAD)0.00Rev. Defect Extent (% LAD)0.00 Stress Defect Extent (% LCX)0.00Rest Defect Extent (% LCX)0.00Rev. Defect Extent (% LCX)0.00 Stress Defect Extent (% RCA)14.40Rest Defect Extent (% RCA)25.60Rev. Defect Extent (% RCA)0.00 Stress Defect Extent (% TINO)2.80Rest Defect Extent (% TINO)6.10Rev. Defect Extent (% TINO)0.00 Other Information Quality:Excellent IMPRESSION Abnormal Myocardial Perfusion exercise stress study Global LV Function: Normal Stress Test Summary: Nondiagnostic LV Perfusion Summary: Abnormal Left Ventricle LV Size/Shape: The left ventricle is normal size. LV Function:Left ventricle systolic function is normal. The Ejection Fraction is 55-60%. Regional Wall Motion:No regional wall motion abnormalities noted. Metabolism/Perfusion Reversible/Irreversible: There is a large irreversible perfusion/metabolism defect in the Mid-inferior wall. There is a large irreversible perfusion/metabolism defect in the Apical inferior wall. Conclusion 1. Fixed myocardial perfusion defect of the inferior wall suggestive of previous myocardial infarction vs diaphragmatic attenuation. 2. Normal left ventricular function. 3. Cardiac Catheterization recommendation.
[2018-01-07 07:54] LABS: ALB/GLOB RATIO 1.2 (1.0-2.1); ALBUMIN 4.3 g/dL (3.5-5.0); ALT/SGPT 28 U/L (21-72); AST/SGOT 20 U/L (17-59); BLOOD UREA NITROGEN 15 mg/dL (9-20); CALCIUM 9.1 mg/dl (8.6-10.4); GFR AFRICAN-AMERICAN > 60; GFR NON-AFRICAN AMERICAN > 60
[2018-01-07] MEDS: (Novolog) Insulin Aspart, Recombinant 100 u/ml 10 ml vial SC SCH ×4 (07:59→23:05)
--- NOTE | 2018-01-07 08:26 | CP.PCM.PN ---
Subjective - Date & Time of Evaluation Date of Evaluation: 01/07/18 Time of Evaluation: 08:10 - Subjective Subjective: patient is still actively wheezing. no chest pain. Objective - Vital Signs/Intake and Output Vital Signs (last 24 hours): Temp Pulse Resp BP Pulse Ox 97.6 F 93 H 20 149/91 H 96 01/07/18 08:17 01/07/18 08:17 01/07/18 08:17 01/07/18 08:17 01/07/18 08:17 - Medications Medications: Current Medications Albuterol/Ipratropium (Duoneb 3 Mg/0.5 Mg (3 Ml) Ud) 3 ml INH RQ6 PRN PRN Reason: Shortness of Breath Last Admin: 01/06/18 21:38 Dose: 3 ml Amlodipine Besylate (Norvasc) 10 mg PO DAILY [facility] Last Admin: 01/06/18 12:16 Dose: 10 mg Aspirin (Aspirin Chewable) 81 mg PO DAILY [facility] Last Admin: 01/06/18 10:56 Dose: Not Given Bacitracin (Bacitracin) 1 gm TOP Q6H PRN PRN Reason: wound on right forearm Last Admin: 01/05/18 21:08 Dose: 1 applic Enoxaparin Sodium (Lovenox) 40 mg SC DAILY [facility] [place] Last Admin: 01/06/18 10:56 Dose: Not Given Gabapentin (Neurontin) 100 mg PO TID PRN PRN Reason: Anxiety Last Admin: 01/06/18 21:39 Dose: 100 mg Insulin Aspart (Novolog) 0 unit SC ACHS [facility] [place] PRN Reason: Protocol Last Admin: 01/07/18 07:59 Dose: Not Given Methylprednisolone (Solu-Medrol) 60 mg IV Q8 [facility] [place] Last Admin: 01/07/18 06:23 Dose: 60 mg Pramipexole Dihydrochloride (Mirapex) 1.5 mg PO Q12H [facility] Last Admin: 01/06/18 21:39 Dose: 1.5 mg - Labs Labs: 01/07/18 07:30 01/07/18 07:30 - Constitutional Appears: Non-toxic - Head Exam Head Exam: NORMAL INSPECTION - ENT Exam ENT Exam: Mucous Membranes Moist - Neck Exam Neck Exam: Full ROM - Respiratory Exam Respiratory Exam: Wheezes - Cardiovascular Exam Cardiovascular Exam: REGULAR RHYTHM - GI/Abdominal Exam GI & Abdominal Exam: Normal Bowel Sounds - Rectal Exam Rectal Exam: Deferred - Extremities Exam Extremities Exam: Pedal Edema - Back Exam Back Exam: NORMAL INSPECTION - Neurological Exam Neurological Exam: Alert - Psychiatric Exam Psychiatric exam: Normal Affect - Skin Skin Exam: Normal Color Assessment and Plan (1) Chest pain Assessment & Plan: I reviewed the stress test with the patient. Thre is myocardial perfusion defect of the inferior wall. The patient likely has signficant CAD. I will continue medical therapy. Schedule for outpatient cardiac cath. Status: Acute (2) Hypertension Assessment & Plan: blood pressure control Status: Acute
[2018-01-07] MEDS: Enoxaparin 40 mg Syringe SC SCH (09:17)
[2018-01-07 09:55] LABS: ANISOCYTOSIS SLIGHT; LYMPHOCYTE 5 % (20-40); MONOCYTE 3 % (0-10); NEUTROPHIL 92 % (50-75); PLATELET ESTIMATE NORMAL (NORMAL); TOTAL CELLS COUNTED 100
[2018-01-07] MEDS: Bacitracin Ointment 30 GM TUBE TOP PRN (11:06)
[2018-01-07] MEDS: Albuterol-Ipratrop 3 mg / 0.5 (3 ml) UD INH PRN (11:27)
--- NOTE | 2018-01-07 17:07 | CP.PCM.PN ---
Subjective - Date & Time of Evaluation Date of Evaluation: 01/07/18 Time of Evaluation: 17:06 - Subjective Subjective: Patient is seen and examined Continues to wheeze Reports dyspnea Afebrile Objective - Vital Signs/Intake and Output Vital Signs (last 24 hours): Temp Pulse Resp BP Pulse Ox 97.6 F 104 H 20 137/82 95 01/07/18 15:00 01/07/18 15:54 01/07/18 15:00 01/07/18 15:00 01/07/18 15:00 Intake and Output: 01/07/18 01/07/18 06:59 18:59 Intake Total 510 Balance 510 - Medications Medications: Current Medications Albuterol/Ipratropium (Duoneb 3 Mg/0.5 Mg (3 Ml) Ud) 3 ml INH RQ6 PRN PRN Reason: Shortness of Breath Last Admin: 01/07/18 11:27 Dose: 3 ml Amlodipine Besylate (Norvasc) 10 mg PO DAILY [facility] Last Admin: 01/07/18 09:16 Dose: 10 mg Aspirin (Aspirin Chewable) 81 mg PO DAILY [facility] Last Admin: 01/07/18 09:16 Dose: 81 mg Bacitracin (Bacitracin) 1 gm TOP Q6H PRN PRN Reason: wound on right forearm Last Admin: 01/07/18 11:06 Dose: 1 applic Enoxaparin Sodium (Lovenox) 40 mg SC DAILY [facility] Last Admin: 01/07/18 09:17 Dose: 40 mg Gabapentin (Neurontin) 100 mg PO TID PRN PRN Reason: Anxiety Last Admin: 01/06/18 21:39 Dose: 100 mg Insulin Aspart (Novolog) 0 unit SC ACHS [facility] PRN Reason: Protocol Last Admin: 01/07/18 11:33 Dose: Not Given Methylprednisolone (Solu-Medrol) 60 mg IV Q8 [facility] Last Admin: 01/07/18 13:09 Dose: 60 mg Pramipexole Dihydrochloride (Mirapex) 1.5 mg PO Q12H [facility] Last Admin: 01/07/18 09:16 Dose: 1.5 mg - Labs Labs: 01/07/18 07:30 01/07/18 07:30 - Head Exam Head Exam: NORMAL INSPECTION - Eye Exam Eye Exam: Normal appearance - ENT Exam ENT Exam: Mucous Membranes Moist - Respiratory Exam Respiratory Exam: Prolonged Expiratory Phase, Wheezes - Cardiovascular Exam Cardiovascular Exam: REGULAR RHYTHM, +S1, +S2 - GI/Abdominal Exam GI & Abdominal Exam: Soft, Normal Bowel Sounds - Neurological Exam Neurological Exam: Alert, Oriented x3 Assessment and Plan - Assessment and Plan (Free Text) Assessment: COPD Exacerbation Morbid Obesity CAD IONA HTN DM Continue Solumedrol 60 mg IV Q 8 hrs Bronchodilators ASA Hold BB due to active wheezing Statins Cardiology input appreciated Accucheck Insulin BP control DVT/GI Prophalaxis
[2018-01-08 07:16] LABS: BASO % 0.3 % (0.0-2.0); HEMOGLOBIN 14.2 g/dL (12.0-18.0); LYMPH % 6.8 % (20.0-40.0); MEAN CELL VOLUME 83.2 fL (80.0-94.0); MEAN CORPUSCULAR HEMOGLOBIN 27.6 pg (27.0-31.0); MEAN CORPUSCULAR HGB CONC 33.2 g/dL (33.0-37.0); MEAN PLATELET VOLUME 8.1 fL (7.2-11.7); MONO # 1.1 K/uL (0.0-0.8); MONO % 7.3 % (0.0-10.0); NEUT % 85.6 % (50.0-75.0); PLATELET COUNT 348 K/uL (130-400); RBC 5.14 Mil/uL (4.40-5.90); RED CELL DISTRIBUTION WIDTH 15.7 % (11.5-14.5); WHITE BLOOD COUNT 15.2 K/uL (4.8-10.8)
[2018-01-08 07:35] LABS: ALB/GLOB RATIO 1.2 (1.0-2.1); ALT/SGPT 31 U/L (21-72); AST/SGOT 20 U/L (17-59); BLOOD UREA NITROGEN 15 mg/dL (9-20); CALCIUM 8.8 mg/dl (8.6-10.4); GFR AFRICAN-AMERICAN > 60; GFR NON-AFRICAN AMERICAN > 60
[2018-01-08] MEDS: Albuterol-Ipratrop 3 mg / 0.5 (3 ml) UD INH PRN ×2 (07:52→20:08)
[2018-01-08] MEDS: (Novolog) Insulin Aspart, Recombinant 100 u/ml 10 ml vial SC SCH ×4 (08:13→21:23)
[2018-01-08 09:48] LABS: ANISOCYTOSIS SLIGHT; LYMPHOCYTE 8 % (20-40); MONOCYTE 7 % (0-10); NEUTROPHIL 85 % (50-75); PLATELET ESTIMATE NORMAL (NORMAL); TOTAL CELLS COUNTED 100
[2018-01-08] MEDS: Enoxaparin 40 mg Syringe SC SCH (09:56)
[2018-01-08 15:55] VITALS: RESP 20
[2018-01-09] MEDS: Albuterol-Ipratrop 3 mg / 0.5 (3 ml) UD INH PRN ×2 (07:40→13:13)
[2018-01-09] MEDS: (Novolog) Insulin Aspart, Recombinant 100 u/ml 10 ml vial SC SCH ×4 (08:38→21:36)
[2018-01-09] MEDS: Enoxaparin 40 mg Syringe SC SCH (09:38)
--- NOTE | 2018-01-09 12:52 | CP.PCM.PN ---
Subjective - Date & Time of Evaluation Date of Evaluation: 01/09/18 Time of Evaluation: 12:51 Objective - Vital Signs/Intake and Output Vital Signs (last 24 hours): Temp Pulse Resp BP Pulse Ox 97.6 F 68 20 145/97 H 95 01/09/18 00:01 01/09/18 01:00 01/09/18 00:01 01/09/18 00:01 01/09/18 00:01 - Medications Medications: Current Medications Albuterol/Ipratropium (Duoneb 3 Mg/0.5 Mg (3 Ml) Ud) 3 ml INH RQ6 PRN PRN Reason: Shortness of Breath Last Admin: 01/09/18 07:40 Dose: 3 ml Amlodipine Besylate (Norvasc) 10 mg PO DAILY [facility] Last Admin: 01/09/18 09:38 Dose: 10 mg Aspirin (Aspirin Chewable) 81 mg PO DAILY [facility] Last Admin: 01/09/18 09:38 Dose: 81 mg Bacitracin (Bacitracin) 1 gm TOP Q6H PRN PRN Reason: wound on right forearm Last Admin: 01/07/18 11:06 Dose: 1 applic Enoxaparin Sodium (Lovenox) 40 mg SC DAILY [facility] Last Admin: 01/09/18 09:38 Dose: 40 mg Gabapentin (Neurontin) 100 mg PO TID PRN PRN Reason: Anxiety Last Admin: 01/08/18 22:45 Dose: 100 mg Insulin Aspart (Novolog) 0 unit SC ACHS [facility] PRN Reason: Protocol Last Admin: 01/09/18 12:45 Dose: 2 unit Methylprednisolone (Solu-Medrol) 60 mg IV Q8 [facility] Last Admin: 01/09/18 06:27 Dose: 60 mg Pramipexole Dihydrochloride (Mirapex) 1.5 mg PO Q12H [facility] Last Admin: 01/09/18 09:38 Dose: 1.5 mg - Labs Labs: 01/08/18 07:11 01/08/18 07:11
[2018-01-09] MEDS: Bacitracin Ointment 30 GM TUBE TOP PRN (14:57)
[2018-01-09 23:24] VITALS: TEMP 97.8; O2SAT 96
[2018-01-10] MEDS: Albuterol-Ipratrop 3 mg / 0.5 (3 ml) UD INH PRN ×2 (06:49→07:56)
[2018-01-10] MEDS: (Novolog) Insulin Aspart, Recombinant 100 u/ml 10 ml vial SC SCH ×2 (07:29→11:57)
[2018-01-10 08:07] VITALS: BP 116/97
[2018-01-10 08:16] VITALS: PULSE 68
[2018-01-10] MEDS: Enoxaparin 40 mg Syringe SC SCH (09:05)
--- NOTE | 2018-01-10 12:17 | CP.PCM.PN ---
Subjective - Date & Time of Evaluation Date of Evaluation: 01/10/18 Time of Evaluation: 12:14 - Subjective Subjective: PATIENT WAS ADMITTED FOR COPD EXACERBATION AND CHEST PAIN AAOX3 SITTING AT THE BEDSIDE DENIES SOB OR CHEST PAIN NO SIGN OF DISTRESS NOTED Objective - Vital Signs/Intake and Output Vital Signs (last 24 hours): Temp Pulse Resp BP Pulse Ox 97.8 F 68 20 116/97 H 96 01/10/18 07:00 01/10/18 07:45 01/10/18 07:00 01/10/18 07:00 01/10/18 07:00 - Medications Medications: Current Medications Albuterol/Ipratropium (Duoneb 3 Mg/0.5 Mg (3 Ml) Ud) 3 ml INH RQ6 PRN PRN Reason: Shortness of Breath Last Admin: 01/10/18 07:56 Dose: 3 ml Amlodipine Besylate (Norvasc) 10 mg PO DAILY [facility] Last Admin: 01/10/18 09:05 Dose: 10 mg Aspirin (Aspirin Chewable) 81 mg PO DAILY [facility] Last Admin: 01/10/18 09:05 Dose: 81 mg Bacitracin (Bacitracin) 1 gm TOP Q6H PRN PRN Reason: wound on right forearm Last Admin: 01/09/18 14:57 Dose: 1 applic Enoxaparin Sodium (Lovenox) 40 mg SC DAILY [facility] Last Admin: 01/10/18 09:05 Dose: 40 mg Gabapentin (Neurontin) 100 mg PO TID PRN PRN Reason: Anxiety Last Admin: 01/09/18 21:59 Dose: 100 mg Insulin Aspart (Novolog) 0 unit SC ACHS [facility] PRN Reason: Protocol Last Admin: 01/10/18 11:57 Dose: Not Given Methylprednisolone (Solu-Medrol) 60 mg IV Q8 [facility] Last Admin: 01/10/18 06:29 Dose: 60 mg Pramipexole Dihydrochloride (Mirapex) 1.5 mg PO Q12H [facility] Last Admin: 01/10/18 09:05 Dose: 1.5 mg - Labs Labs: 01/08/18 07:11 01/08/18 07:11 Assessment and Plan - Assessment and Plan (Free Text) Assessment: PATIENT SEEN AND EXAMINED AT THE BEDSIDE LUNG SOUND IMPROVE STRESS TEST DONE AND SHOW DEFECT OF THE INFERIOR WALL SCHEDULE FOR OUT PATIENT CATH BY DR JJ DISCUSS WITH DR BAH WHO CLEAR PATIENT FOR DC FOLLOW UP WITH DR BAH AT HIS OFFICE IN 1 WEEK ---CALL FOR APPOINTMENT FOLLOW UP WITH DR JJ AT HIS OFFICE ON THE 01/17---CALL TO CONFIRM CONTINUE ALL YOUR HOME MEDICATION ORDER NEW PRESCRIPTION GIVEN MEDROL DOSE PACK DIRECTED ACTIVITY TOLERATED CALL DR BAH OR GOT TO THE EMERGENCY ROOM IF SYMPTOMS RETURN OR WORSENING DISCUSS WITH PATIENT WHO AGREE AND VERBALIZED UNDERSTANDING
== END 2018-01-10 13:03 | disposition home or self-care (01) | DRG 88 ==
LOC: C.ER 09:07 → C.9E 13:04 → C.5S 13:54
PROVIDERS: ADMIT Internal Medicine Critical Care Medicine; ATTEND Internal Medicine Critical Care Medicine
DX: J44.1 Chronic obstructive pulmonary disease with (acute) exacerbation (principal); I25.10 Atherosclerotic heart disease of native coronary artery without angina pectoris; I11.0 Hypertensive heart disease with heart failure; I50.9 Heart failure, unspecified; E11.9 Type 2 diabetes mellitus without complications; F20.9 Schizophrenia, unspecified; E78.00 Pure hypercholesterolemia, unspecified; G47.33 Obstructive sleep apnea (adult) (pediatric); F17.210 Nicotine dependence, cigarettes, uncomplicated; E66.01 Morbid (severe) obesity due to excess calories; F60.9 Personality disorder, unspecified; F31.9 Bipolar disorder, unspecified